=== PATIENT | male | born 1930 | race Caucasian/White ===

== ENCOUNTER → 2016-12-15 | Outpatient (CLI) | payer OTHER | LOC: FIMAGING 15:35 | PROVIDERS: ATTEND Internal Medicine | DX: R60.9 Edema, unspecified (principal); R79.89 Other specified abnormal findings of blood chemistry ==

== ENCOUNTER → 2017-12-04 | Outpatient (CLI) | payer OTHER | LOC: FIMAGING 16:06 | PROVIDERS: ATTEND Internal Medicine | DX: N18.9 Chronic kidney disease, unspecified (principal); N28.1 Cyst of kidney, acquired ==

== ENCOUNTER → 2017-12-05 | Outpatient (CLI) | payer OTHER | LOC: BHFA 10:00 | PROVIDERS: ATTEND Internal Medicine Cardiovascular Disease | DX: Z95.2 Presence of prosthetic heart valve (principal) ==